=== PATIENT | male | born 1965 | race Caucasian/White ===

== ENCOUNTER 2021-12-17 11:24 | Emergency (ER) | payer MEDICAID ==
[~2021-12-17] VITALS: Ht 188 cm; Wt 84.1 kg
[2021-12-17] MEDS ORDERED: SODIUM CHLORIDE 0.9% 1,000 ML IV ONE ×2 (11:45→12:30)
[2021-12-17 11:52] LABS: BASOPHILS % (AUTO) 0.1 % (0.0-2.0); EOSINOPHILS % (AUTO) 0.8 % (1.0-6.0); HEMATOCRIT 38.2 % (41-53); LYMPHOCYTES % (AUTO) 17.4 % (22.0-44.0); MEAN CORPUSCULAR HEMOGLOBIN 30.1 pg (26.0-34.0); MEAN CORPUSCULAR VOLUME 89 fL (80-100); MONOCYTES # (AUTO) 0.5 K/uL (0.1-1.0); MONOCYTES % (AUTO) 8.6 % (2.0-9.0); NEUTROPHILS # (AUTO) 4.4 K/uL (1.8-7.7); NEUTROPHILS % (AUTO) 73.1 % (40.0-70.0); PLATELET COUNT (AUTO) 212 K/uL (150-450); RED BLOOD CELL COUNT(AUTO) 4.31 MIL/uL (4.50-5.90); RED CELL DISTRIBUTION WIDTH 16.5 % (11.5-14.5)
[2021-12-17 12:00] LABS: CALCIUM, TOTAL 9.1 mg/dL (8.8-10.5); CREATININE 1.39 mg/dL (0.60-1.30); POTASSIUM 3.8 mmol/L (3.5-5.1)
[2021-12-17 12:05] LABS: INR 1.1 (0.9-1.1); PROTHROMBIN TIME 11.2 SEC (9.4-11.6)
[2021-12-17 12:09] LABS: ALBUMIN 3.5 g/dL (3.4-5.0); BILIRUBIN,TOTAL 0.6 mg/dL (0.1-1.0); TOTAL PROTEIN, SERUM 7.9 g/dL (6.4-8.2)
[2021-12-17 12:14] LABS: APPEARANCE,URINE CLEAR (CLEAR); BILIRUBIN,URINE NEGATIVE (NEGATIVE); GLUCOSE, URINE (UA) NEGATIVE (NEGATIVE); KETONES,URINE NEGATIVE (NEGATIVE); LEUKOCYTE ESTERASE ,URINE NEGATIVE (NEGATIVE); NITRATE,URINE NEGATIVE (NEGATIVE); OCCULT BLOOD,URINE NEGATIVE (NEGATIVE); PH,URINE 6.5 (5.0-8.0); PROTEIN,URINE NEGATIVE (NEGATIVE); UROBILINOGEN,URINE <=1.0 mg/dL (<=1.0)
[2021-12-17] MEDS ORDERED: LORazepam 1 MG TABLET PO ONE (12:30)
[2021-12-17 12:50] VITALS: BP 136/82
== END 2021-12-17 13:42 | disposition left against medical advice (07) ==
LOC: EMS 11:24
DX: R07.9 Chest pain, unspecified (principal); F15.90 Other stimulant use, unspecified, uncomplicated; R00.0 Tachycardia, unspecified; I95.9 Hypotension, unspecified; J44.9 Chronic obstructive pulmonary disease, unspecified; I10 Essential (primary) hypertension; Z86.79 Personal history of other diseases of the circulatory system; Z96.89 Presence of other specified functional implants; Z98.890 Other specified postprocedural states; F17.210 Nicotine dependence, cigarettes, uncomplicated
CPT/HCPCS: 99285; 96360; 71045; 96361; 80053; 81003; 84484; 85025; 85610; 85730; 36415; 93005; J7030

== ENCOUNTER 2021-12-28 03:06 | Emergency (ER) | payer MEDICAID ==
[~2021-12-28] VITALS: Ht 185.4 cm; Wt 89.0 kg
[2021-12-28 04:31] LABS: COVID AG,FIA SOURCE NASAL SWAB
[2021-12-28 04:49] VITALS: BP 176/84
[2021-12-28 05:24] LABS: AMPHET/METH SCREEN,URINE POSITIVE (NEGATIVE); BARBITURATE SCREEN, URINE NEGATIVE (NEGATIVE); BENZODIAZEPINES SCREEN,URINE NEGATIVE (NEGATIVE); CANNABINOID SCREEN,URINE NEGATIVE (NEGATIVE); COCAINE SCREEN,URINE NEGATIVE (NEGATIVE); METHADONE SCREEN, URINE NEGATIVE (NEGATIVE); OPIATE SCREEN,URINE NEGATIVE (NEGATIVE); PHENCYCLIDINE SCREEN,URINE NEGATIVE (NEGATIVE)
== END 2021-12-28 06:49 | disposition home or self-care (01) ==
LOC: EMS 03:06
DX: F15.90 Other stimulant use, unspecified, uncomplicated (principal); J44.9 Chronic obstructive pulmonary disease, unspecified; I10 Essential (primary) hypertension; I48.91 Unspecified atrial fibrillation; F11.90 Opioid use, unspecified, uncomplicated; F17.210 Nicotine dependence, cigarettes, uncomplicated; Z86.79 Personal history of other diseases of the circulatory system; Z95.0 Presence of cardiac pacemaker; Z98.890 Other specified postprocedural states; Z20.822 Contact with and (suspected) exposure to COVID-19
CPT/HCPCS: 71045; 93005; 99285

== ENCOUNTER 2022-01-06 07:59 | Inpatient (IN) | payer MEDICAID ==
[~2022-01-06] VITALS: Ht 190.5 cm; Wt 84.2 kg
[2022-01-06 12:53] VITALS: BP 160/94
[2022-01-06] MEDS ORDERED: BENZOCAINE/MENTHOL LOZENGE PO PRN (14:15)
[2022-01-06] MEDS ORDERED: ACETAMINOPHEN 325 MG TABLET PO PRN (14:15)
[2022-01-06] MEDS ORDERED: OMEPRAZOLE 20 MG CAPSULE PO PRN (14:15)
[2022-01-06] MEDS ORDERED: MAG HYDROX/AL HYDROX/SIMETH ES 30 ML SUSPENSION UDCUP PO PRN (14:15)
[2022-01-06] MEDS ORDERED: CloNIDine HCL 0.1 MG TABLET PO PRN (14:15)
[2022-01-06] MEDS ORDERED: PETROLATUM,WHITE 28 GM JELLY TP PRN (14:15)
[2022-01-06] MEDS ORDERED: MAGNESIUM HYDROXIDE SUSPENSION 30 ML UDCUP PO PRN (14:15)
[2022-01-06] MEDS ORDERED: DOCUSATE SODIUM 100 MG CAPSULE PO PRN (14:15)
[2022-01-06] MEDS ORDERED: ONDANSETRON HCL 4 MG TABLET PO PRN (14:15)
[2022-01-06] MEDS ORDERED: LOPERAMIDE HCL 2 MG CAPSULE PO PRN (14:15)
[2022-01-06] MEDS ORDERED: IBUPROFEN 600 MG TABLET PO PRN (14:15)
[2022-01-06] MEDS ORDERED: BACITRACIN 28 GM OINTMENT TP PRN (14:15)
[2022-01-06] MEDS ORDERED: ALBUTEROL SULFATE HFA 90 MCG/PUFF 8 GM INHALER IH PRN (14:15)
[2022-01-07] MEDS: ZOLPIDEM TARTRATE 10 MG TABLET PO PRN (02:00)
[2022-01-07] MEDS: LORazepam 2 MG TABLET PO PRN ×3 (02:00→15:30)
[2022-01-07] MEDS: LevETIRAcetam 500 MG TABLET PO SCH ×2 (09:05→17:20)
[2022-01-07] MEDS: METOPROLOL TARTRATE 25 MG TABLET PO SCH ×2 (09:06→17:21)
[2022-01-07] MEDS: LISINOPRIL 20 MG TABLET PO SCH (09:06)
[2022-01-07] MEDS: FUROSEMIDE 40 MG TABLET PO SCH (09:06)
[2022-01-07] MEDS: APIXABAN 5 MG TABLET PO SCH ×2 (09:07→17:21)
[2022-01-07] MEDS: LOSARTAN POTASSIUM 50 MG TABLET PO SCH (09:07)
[2022-01-07] MEDS: EMTRICITABINE/TENOFOVIR 200-300 MG TABLET PO SCH (09:07)
[2022-01-07 10:22] VITALS: BP 169/112
[2022-01-07 16:18] VITALS: BP 119/69
[2022-01-07 17:14] VITALS: BP 143/80
[2022-01-07] MEDS ORDERED: DiphenhydrAMINE HCL 50 MG/ML VIAL IM ONE (20:45)
[2022-01-07] MEDS ORDERED: HALOPERIDOL LACTATE 5 MG/ML VIAL IM ONE (20:45)
[2022-01-07] MEDS ORDERED: LORazepam 2 MG/ML VIAL IM ONE (20:45)
[2022-01-07] MEDS ORDERED: HALOPERIDOL LACTATE 5 MG/ML VIAL ONE (20:46)
[2022-01-07] MEDS ORDERED: DiphenhydrAMINE HCL 50 MG/ML VIAL ONE (20:47)
[2022-01-08] MEDS: LOSARTAN POTASSIUM 50 MG TABLET PO SCH (09:05)
[2022-01-08] MEDS: DIVALPROEX SODIUM 500 MG DR TABLET PO SCH ×2 (09:05→20:30)
[2022-01-08] MEDS: EMTRICITABINE/TENOFOVIR 200-300 MG TABLET PO SCH (09:05)
[2022-01-08] MEDS: LORazepam 2 MG TABLET PO PRN ×2 (09:05→13:25)
[2022-01-08] MEDS: APIXABAN 5 MG TABLET PO SCH ×2 (09:06→17:00)
[2022-01-08] MEDS: LevETIRAcetam 500 MG TABLET PO SCH ×2 (09:06→17:00)
[2022-01-08] MEDS: QUEtiapine FUMARATE 100 MG TABLET PO SCH (09:06)
[2022-01-08] MEDS: LISINOPRIL 20 MG TABLET PO SCH (09:06)
[2022-01-08] MEDS: METOPROLOL TARTRATE 25 MG TABLET PO SCH ×2 (09:09→17:00)
[2022-01-08] MEDS: FUROSEMIDE 40 MG TABLET PO SCH (09:09)
[2022-01-08] MEDS: NICOTINE 21 MG/24 HOUR PATCH TD SCH (12:21)
[2022-01-08] MEDS: HALOPERIDOL 5 MG TABLET PO PRN (13:25)
[2022-01-08] MEDS ORDERED: DiphenhydrAMINE HCL 50 MG/ML VIAL ONE (15:20)
[2022-01-08] MEDS ORDERED: HALOPERIDOL LACTATE 5 MG/ML VIAL ONE (15:21)
[2022-01-08] MEDS ORDERED: DiphenhydrAMINE HCL 50 MG/ML VIAL IM ONE (15:30)
[2022-01-08] MEDS ORDERED: LORazepam 2 MG/ML VIAL IM ONE (15:30)
[2022-01-08] MEDS ORDERED: HALOPERIDOL LACTATE 5 MG/ML VIAL IM ONE (15:30)
[2022-01-08] MEDS: QUEtiapine FUMARATE 200 MG TABLET PO SCH (20:30)
[2022-01-09] MEDS: DIVALPROEX SODIUM 500 MG DR TABLET PO SCH ×2 (09:27→21:00)
[2022-01-09] MEDS: QUEtiapine FUMARATE 100 MG TABLET PO SCH (09:27)
[2022-01-09] MEDS: LORazepam 2 MG TABLET PO PRN ×2 (09:27→13:29)
[2022-01-09] MEDS: LevETIRAcetam 500 MG TABLET PO SCH ×2 (09:27→17:27)
[2022-01-09] MEDS: HALOPERIDOL 5 MG TABLET PO PRN (09:27)
[2022-01-09] MEDS: APIXABAN 5 MG TABLET PO SCH ×2 (09:27→17:28)
[2022-01-09] MEDS: LISINOPRIL 20 MG TABLET PO SCH (09:27)
[2022-01-09] MEDS: METOPROLOL TARTRATE 25 MG TABLET PO SCH ×2 (09:27→17:28)
[2022-01-09] MEDS: LOSARTAN POTASSIUM 50 MG TABLET PO SCH (09:27)
[2022-01-09] MEDS: FUROSEMIDE 40 MG TABLET PO SCH (09:28)
[2022-01-09] MEDS: EMTRICITABINE/TENOFOVIR 200-300 MG TABLET PO SCH (09:33)
[2022-01-09] MEDS: NICOTINE 21 MG/24 HOUR PATCH TD SCH (09:35)
[2022-01-09] MEDS: QUEtiapine FUMARATE 200 MG TABLET PO SCH (21:00)
[2022-01-10] MEDS: DIVALPROEX SODIUM 500 MG DR TABLET PO SCH ×2 (09:37→20:01)
[2022-01-10] MEDS: LORazepam 2 MG TABLET PO PRN ×3 (09:37→20:02)
[2022-01-10] MEDS: NICOTINE 21 MG/24 HOUR PATCH TD SCH (09:37)
[2022-01-10] MEDS: LevETIRAcetam 500 MG TABLET PO SCH ×2 (09:37→16:08)
[2022-01-10] MEDS: LISINOPRIL 20 MG TABLET PO SCH (09:37)
[2022-01-10] MEDS: EMTRICITABINE/TENOFOVIR 200-300 MG TABLET PO SCH (09:38)
[2022-01-10] MEDS: METOPROLOL TARTRATE 25 MG TABLET PO SCH ×2 (09:38→16:24)
[2022-01-10] MEDS: FUROSEMIDE 40 MG TABLET PO SCH (09:38)
[2022-01-10] MEDS: LOSARTAN POTASSIUM 50 MG TABLET PO SCH (09:39)
[2022-01-10] MEDS: APIXABAN 5 MG TABLET PO SCH ×2 (09:39→16:21)
[2022-01-10] MEDS: QUEtiapine FUMARATE 100 MG TABLET PO SCH (09:39)
[2022-01-10] MEDS: HALOPERIDOL 5 MG TABLET PO PRN (16:08)
[2022-01-10] MEDS: QUEtiapine FUMARATE 200 MG TABLET PO SCH (20:02)
[2022-01-11] MEDS: LORazepam 2 MG TABLET PO PRN ×2 (00:32→08:26)
[2022-01-11] MEDS: ZOLPIDEM TARTRATE 10 MG TABLET PO PRN (00:32)
[2022-01-11 08:01] VITALS: BP 168/98
[2022-01-11] MEDS: EMTRICITABINE/TENOFOVIR 200-300 MG TABLET PO SCH (08:07)
[2022-01-11] MEDS: METOPROLOL TARTRATE 25 MG TABLET PO SCH (08:07)
[2022-01-11] MEDS: LOSARTAN POTASSIUM 50 MG TABLET PO SCH (08:07)
[2022-01-11] MEDS: FUROSEMIDE 40 MG TABLET PO SCH (08:10)
[2022-01-11] MEDS: APIXABAN 5 MG TABLET PO SCH (08:10)
[2022-01-11] MEDS: LevETIRAcetam 500 MG TABLET PO SCH (08:10)
[2022-01-11] MEDS: DIVALPROEX SODIUM 500 MG DR TABLET PO SCH (08:10)
[2022-01-11] MEDS: LISINOPRIL 20 MG TABLET PO SCH (08:10)
[2022-01-11] MEDS: QUEtiapine FUMARATE 100 MG TABLET PO SCH (08:10)
[2022-01-11] MEDS: NICOTINE 21 MG/24 HOUR PATCH TD SCH (08:11)
[2022-01-11] MEDS ORDERED: QUET200T30 PO (10:47)
[2022-01-11] MEDS ORDERED: QUET100T34 PO (10:47)
[2022-01-11] MEDS ORDERED: DIVA-112 PO (10:47)
[2022-01-11] MEDS ORDERED: FURO-152 PO ×2 (11:24→20:29)
[2022-01-11] MEDS ORDERED: APIX5TAB PO ×2 (11:25→20:29)
[2022-01-11] MEDS ORDERED: LEVE500T8 PO ×2 (11:26→20:29)
[2022-01-11] MEDS ORDERED: LOSA-382 PO ×2 (11:27→20:29)
[2022-01-11] MEDS ORDERED: LISI-662 PO ×2 (11:27→20:29)
[2022-01-11] MEDS ORDERED: METO25 PO ×2 (11:27→20:29)
== END 2022-01-11 13:30 | disposition home or self-care (01) | DRG 750 ==
LOC: 3EI 11:45 → 3EC 01-08 02:14
PROVIDERS: ADMIT Psychiatry & Neurology Psychiatry; ATTEND Psychiatry & Neurology Psychiatry
DX: F25.9 Schizoaffective disorder, unspecified (principal); F10.10 Alcohol abuse, uncomplicated; F12.10 Cannabis abuse, uncomplicated; F15.10 Other stimulant abuse, uncomplicated; F17.200 Nicotine dependence, unspecified, uncomplicated; F32.A Depression, unspecified; F41.9 Anxiety disorder, unspecified; I10 Essential (primary) hypertension; I48.91 Unspecified atrial fibrillation; J44.9 Chronic obstructive pulmonary disease, unspecified; K21.9 Gastro-esophageal reflux disease without esophagitis; Z59.00 Homelessness unspecified; Z95.0 Presence of cardiac pacemaker; Z56.0 Unemployment, unspecified
CPT/HCPCS: J1200; J1630; J2060; J3535

== ENCOUNTER 2022-01-13 23:14 | Emergency (ER) | payer MEDICAID ==
[~2022-01-13] VITALS: Ht 188 cm; Wt 81.8 kg
[~2022-01-13 23:14] MED LIST: APIX5TAB PO; DIVA-112 PO; FURO-152 PO; LEVE500T8 PO; LISI-662 PO; LOSA-382 PO; METO25 PO; QUET100T34 PO; QUET200T30 PO
[2022-01-13 23:30] VITALS: BP 106/73
[2022-01-14] MEDS ORDERED: LORazepam 2 MG TABLET PO ONE (02:00)
[2022-01-14] MEDS ORDERED: QUEtiapine FUMARATE 100 MG TABLET PO ONE (02:15)
== END 2022-01-14 02:43 | disposition left against medical advice (07) ==
LOC: EMS 23:15
DX: F25.9 Schizoaffective disorder, unspecified (principal); J44.9 Chronic obstructive pulmonary disease, unspecified; I10 Essential (primary) hypertension; I51.9 Heart disease, unspecified; F17.210 Nicotine dependence, cigarettes, uncomplicated; F15.90 Other stimulant use, unspecified, uncomplicated; F11.90 Opioid use, unspecified, uncomplicated; Z98.890 Other specified postprocedural states
CPT/HCPCS: 93005; 99283

== ENCOUNTER 2023-02-21 01:16 | Emergency (ER) | payer MEDICAID | END 2023-02-21 01:40 | disposition left against medical advice (07) | LOC: EMS 01:17 | DX: Z53.21 Procedure and treatment not carried out due to patient leaving prior to being seen by health care provider (principal) ==

== ENCOUNTER 2023-02-21 08:04 | Emergency (ER) | payer MEDICAID ==
[~2023-02-21] VITALS: Ht 188 cm; Wt 8.4 kg
[2023-02-21 08:14] VITALS: TEMP 97.7
[2023-02-21] MEDS ORDERED: LORazepam 2 MG TABLET PO ONE (09:15)
[2023-02-21] MEDS ORDERED: SODIUM CHLORIDE 0.9% 1,000 ML IV ONE (09:15)
[2023-02-21] MEDS ORDERED: ONDANSETRON HCL 4 MG/2 ML VIAL IVP ONE (09:15)
[2023-02-21 09:36] LABS: APPEARANCE,URINE CLEAR (CLEAR); BILIRUBIN,URINE NEGATIVE (NEGATIVE); COLOR,URINE YELLOW (YELLOW); GLUCOSE, URINE (UA) NEGATIVE (NEGATIVE); LEUKOCYTE ESTERASE ,URINE NEGATIVE (NEGATIVE); NITRATE,URINE NEGATIVE (NEGATIVE); OCCULT BLOOD,URINE NEGATIVE (NEGATIVE); PROTEIN,URINE TRACE mg/dL (NEGATIVE); SPECIFIC GRAVITIY, URINE 1.021 (1.003-1.030); UROBILINOGEN,URINE <=1.0 mg/dL (<=1.0)
[2023-02-21 09:43] LABS: AMPHET/METH SCREEN,URINE POSITIVE (NEGATIVE); BARBITURATE SCREEN, URINE NEGATIVE (NEGATIVE); BENZODIAZEPINES SCREEN,URINE NEGATIVE (NEGATIVE); CANNABINOID SCREEN,URINE NEGATIVE (NEGATIVE); COCAINE SCREEN,URINE NEGATIVE (NEGATIVE); METHADONE SCREEN, URINE NEGATIVE (NEGATIVE); OPIATE SCREEN,URINE NEGATIVE (NEGATIVE); PHENCYCLIDINE SCREEN,URINE NEGATIVE (NEGATIVE)
[2023-02-21 09:53] LABS: ALCOHOL, URINE DRUG SCREEN NEGATIVE (NEGATIVE)
[2023-02-21 09:57] LABS: ANION GAP 7 mmol/L (8-16); CALCIUM, TOTAL 8.8 mg/dL (8.8-10.5); CARBON DIOXIDE 30 mmol/L (22-29); CHLORIDE 99 mmol/L (98-107); CREATININE 1.02 mg/dL (0.60-1.30); GLOMERULAR FILTR. RATE CALC > 60 mL/min (>60); GLUCOSE,RANDOM 161 mg/dL (70-110); POTASSIUM 3.6 mmol/L (3.5-5.1); SODIUM SERUM 136 mmol/L (136-145); UREA NITROGEN, BLOOD 20 mg/dL (7-18)
[2023-02-21 10:04] LABS: TROPONIN I-HIGH SENSITIVITY 21 ng/L (<76)
[2023-02-21 10:05] LABS: BACTERIA,URINE None Seen /HPF (None Seen); CALCIUM OXALATE CRYSTALS,UR Moderate /LPF (None Seen); RBC,URINE None Seen /HPF (0-2); SQUAMOUS EPITHELIAL CELL,UR Few /LPF (None Seen); WBC,URINE None Seen /HPF (0-5)
[2023-02-21 10:21] LABS: ALANINE AMINOTRANSFERASE 25 U/L (12-78); ALBUMIN 3.3 g/dL (3.4-5.0); ALKALINE PHOSPHATASE 68 U/L (46-116); ASPARTATE AMINOTRANSFERASE 24 U/L (15-37); BILIRUBIN,TOTAL 0.8 mg/dL (0.1-1.0); CREATINE KINASE, TOTAL ONLY 171 U/L (39-308); LIPASE 60 U/L (16-77)
[2023-02-21 10:59] VITALS: BP 158/94; PULSE 98; RESP 16
== END 2023-02-21 11:00 | disposition home or self-care (01) ==
LOC: EMS 08:30
DX: F11.10 Opioid abuse, uncomplicated (principal); F15.10 Other stimulant abuse, uncomplicated; F25.9 Schizoaffective disorder, unspecified; I48.91 Unspecified atrial fibrillation; J44.9 Chronic obstructive pulmonary disease, unspecified; I11.9 Hypertensive heart disease without heart failure; F17.210 Nicotine dependence, cigarettes, uncomplicated; Z98.890 Other specified postprocedural states; Z95.0 Presence of cardiac pacemaker
CPT/HCPCS: 71045; 80053; 80307; 81001; 82550; 83690; 84484; 93005; 99285; 36415-L1; 36415-TC

== ENCOUNTER 2023-02-21 18:06 | Emergency (ER) | payer MEDICAID ==
[~2023-02-21] VITALS: Ht 190.5 cm; Wt 68.2 kg
[2023-02-21 20:38] VITALS: BP 146/68; PULSE 80; RESP 17; TEMP 98.5
[2023-02-21] MEDS ORDERED: DIPHENOXYLATE/ATROP 2.5-0.025 MG TABLET PO ONE (23:30)
== END 2023-02-22 01:42 | disposition home or self-care (01) ==
LOC: EMS 18:06
DX: F11.20 Opioid dependence, uncomplicated (principal); F15.10 Other stimulant abuse, uncomplicated; R19.7 Diarrhea, unspecified; J44.9 Chronic obstructive pulmonary disease, unspecified; F17.210 Nicotine dependence, cigarettes, uncomplicated; I11.9 Hypertensive heart disease without heart failure; Z98.890 Other specified postprocedural states
CPT/HCPCS: 93005; 99283

== ENCOUNTER 2023-12-23 17:13 | Inpatient (IN) | payer MEDICAID ==
[~2023-12-23] VITALS: Ht 190.5 cm; Wt 79.7 kg
[2023-12-23 18:30] LABS: BASOPHILS % (AUTO) 0.5 % (0.0-2.0); EOSINOPHILS % (AUTO) 2.2 % (1.0-6.0); HEMATOCRIT 44.5 % (41-53); HEMOGLOBIN 14.6 g/dL (13.5-17.5); LYMPHOCYTES # (AUTO) 1.2 K/uL (1.0-4.8); LYMPHOCYTES % (AUTO) 19.3 % (22.0-44.0); MEAN CORPUSCULAR HEMOGLOBIN 30.2 pg (26.0-34.0); MEAN CORPUSCULAR HGB CONC 32.9 G/dL (31.0-37.0); MEAN CORPUSCULAR VOLUME 92 fL (80-100); MONOCYTES # (AUTO) 0.5 K/uL (0.1-1.0); MONOCYTES % (AUTO) 7.6 % (2.0-9.0); NEUTROPHILS # (AUTO) 4.2 K/uL (1.8-7.7); NEUTROPHILS % (AUTO) 70.4 % (40.0-70.0); PLATELET COUNT (AUTO) 204 K/uL (150-450); RED BLOOD CELL COUNT(AUTO) 4.85 MIL/uL (4.50-5.90); RED CELL DISTRIBUTION WIDTH 14.7 % (11.5-14.5)
[2023-12-23 18:32] LABS: ANION GAP 5 mmol/L (8-16); CALCIUM, TOTAL 8.6 mg/dL (8.8-10.5); CARBON DIOXIDE 31 mmol/L (22-29); CHLORIDE 103 mmol/L (98-107); CREATININE 0.93 mg/dL (0.60-1.30); GLOMERULAR FILTR. RATE CALC > 60 mL/min (>60); GLUCOSE,RANDOM 85 mg/dL (70-110); POTASSIUM 4.2 mmol/L (3.5-5.1); SODIUM SERUM 139 mmol/L (136-145); UREA NITROGEN, BLOOD 15 mg/dL (7-18)
[2023-12-23 18:36] LABS: ALCOHOL, BLOOD (SERUM) < 3 mg/dL (0-10)
[2023-12-23 18:54] LABS: COVID AG,FIA SOURCE NPH
[2023-12-23 19:03] LABS: APPEARANCE,URINE CLEAR (CLEAR); BILIRUBIN,URINE NEGATIVE (NEGATIVE); COLOR,URINE YELLOW (YELLOW); GLUCOSE, URINE (UA) 70-100 mg/dL (NEGATIVE); KETONES,URINE NEGATIVE (NEGATIVE); LEUKOCYTE ESTERASE ,URINE NEGATIVE (NEGATIVE); NITRATE,URINE NEGATIVE (NEGATIVE); OCCULT BLOOD,URINE NEGATIVE (NEGATIVE); PROTEIN,URINE TRACE mg/dL (NEGATIVE); SPECIFIC GRAVITIY, URINE 1.025 (1.003-1.030)
[2023-12-23 19:10] LABS: ALCOHOL, URINE DRUG SCREEN NEGATIVE (NEGATIVE); AMPHET/METH SCREEN,URINE POSITIVE (NEGATIVE); BARBITURATE SCREEN, URINE POSITIVE (NEGATIVE); BENZODIAZEPINES SCREEN,URINE NEGATIVE (NEGATIVE); CANNABINOID SCREEN,URINE POSITIVE (NEGATIVE); COCAINE SCREEN,URINE NEGATIVE (NEGATIVE); METHADONE SCREEN, URINE NEGATIVE (NEGATIVE); OPIATE SCREEN,URINE NEGATIVE (NEGATIVE); PHENCYCLIDINE SCREEN,URINE NEGATIVE (NEGATIVE)
[2023-12-23 19:14] LABS: BACTERIA,URINE None Seen /HPF (None Seen); RBC,URINE None Seen /HPF (0-2); WBC,URINE 0-2 /HPF (0-5)
[2023-12-23 19:20] LABS: SARS-COV2 (COVID) ANTIGEN,FIA Negative (Negative)
[2023-12-24] MEDS: LORazepam 2 MG TABLET PO PRN (11:37)
[2023-12-24] MEDS: QUEtiapine FUMARATE 100 MG TABLET PO PRN (11:37)
[2023-12-25] MEDS: ZOLPIDEM TARTRATE 10 MG TABLET PO PRN (01:13)
[2023-12-25] MEDS: DiphenhydrAMINE HCL 25 MG CAPSULE PO ONE (03:02)
[2023-12-25] MEDS ORDERED: OLANZapine 10 MG TABLET ONE (05:04)
[2023-12-25] MEDS: OLANZapine 10 MG TABLET PO ONE (05:24)
[2023-12-25] MEDS ORDERED: LORazepam 2 MG/ML VIAL ONE (10:44)
[2023-12-25] MEDS ORDERED: HALOPERIDOL LACTATE 5 MG/ML VIAL ONE (10:44)
[2023-12-25] MEDS ORDERED: DiphenhydrAMINE HCL 50 MG/ML VIAL ONE (10:44)
[2023-12-25] MEDS: DiphenhydrAMINE HCL 50 MG/ML VIAL IM ONE (10:47)
[2023-12-25] MEDS: LORazepam 2 MG/ML VIAL IM ONE (10:47)
[2023-12-25] MEDS: HALOPERIDOL LACTATE 5 MG/ML VIAL IM ONE (10:47)
[2023-12-25 23:07] VITALS: RESP 18
[2023-12-26] MEDS ORDERED: PNEUMOCOCCAL VACCINE POLYVALENT 0.5 ML SYRINGE [PPSV23] IM. ONE (01:15)
[2023-12-26] MEDS ORDERED: MAGNESIUM HYDROXIDE SUSPENSION 30 ML UDCUP PO PRN (07:00)
[2023-12-26] MEDS ORDERED: ONDANSETRON HCL 4 MG TABLET PO PRN (07:00)
[2023-12-26] MEDS ORDERED: MAG HYDROX/ALUMINUM HYD/SIMETH ES 30 ML SUSPENSION UDCUP PO PRN (07:00)
[2023-12-26] MEDS ORDERED: DOCUSATE SODIUM 100 MG CAPSULE PO PRN (07:00)
[2023-12-26] MEDS ORDERED: LOPERAMIDE HCL 2 MG CAPSULE PO PRN (07:00)
[2023-12-26] MEDS ORDERED: GuaiFENesin/D-METHORPHAN [SUGAR-FREE] 200-20MG/10 ML SYRUP UDCUP PO PRN (07:00)
[2023-12-26] MEDS ORDERED: PETROLATUM,WHITE 28 GM JELLY TP PRN (07:00)
[2023-12-26] MEDS ORDERED: ALBUTEROL SULFATE HFA 90 MCG/PUFF 8 GM INHALER IH PRN (07:00)
[2023-12-26] MEDS: LevETIRAcetam 500 MG TABLET PO SCH (07:48)
[2023-12-26] MEDS: METOPROLOL TARTRATE 25 MG TABLET PO SCH ×2 (07:48→18:15)
[2023-12-26 08:00] VITALS: BP 186/114; PULSE 82; RESP 20; TEMP 98.2; O2SAT 99
[2023-12-26] MEDS: CloNIDine HCL 0.1 MG TABLET PO PRN (08:19)
[2023-12-26 17:32] VITALS: BP 141/98; PULSE 80; RESP 17; TEMP 98.6; O2SAT 99
[2023-12-26] MEDS: LOSARTAN POTASSIUM 50 MG TABLET PO SCH (18:15)
[2023-12-26 20:14] VITALS: BP 158/98; PULSE 86; RESP 18; TEMP 98.4; O2SAT 99
[2023-12-27] MEDS: DIVALPROEX SODIUM 500 MG DR TABLET PO SCH (09:00)
[2023-12-27] MEDS: RisperiDONE 2 MG TABLET PO SCH (09:00)
[2023-12-27] MEDS ORDERED: METOPROLOL TARTRATE 25 MG TABLET PO SCH (09:00)
[2023-12-27 21:19] VITALS: BP 138/80; PULSE 87; RESP 18; TEMP 98.8; O2SAT 96
[2023-12-27 21:20] VITALS: BP 143/89; PULSE 85; RESP 20; TEMP 97.8; O2SAT 98
[2023-12-27] MEDS: IBUPROFEN 400 MG TABLET PO PRN (21:27)
[2023-12-27 22:27] VITALS: RESP 18
[2023-12-28] MEDS: ASPIRIN 81 MG CHEWABLE TABLET PO SCH (07:03)
[2023-12-28 08:59] VITALS: BP 150/80; PULSE 96; RESP 17; TEMP 98; O2SAT 97
[2023-12-28] MEDS: AmLODIPine BESYLATE 5 MG TABLET PO SCH (09:14)
[2023-12-28] MEDS: BUPRENORPHINE HCL/NALOXONE HCL 8-2 MG SUBLINGUAL TABLET SL SCH (13:45)
[2023-12-28 14:04] LABS: CHOL/HDL RATIO 2.8 (4.2-7.3); THYROID STIMULATING HORMONE 1.74 uIU/mL (0.36-3.74)
[2023-12-28 14:07] LABS: HEMOGLOBIN A1C 5.2 % (3.8-5.6)
[2023-12-28] MEDS: NICOTINE 14 MG/24 HOUR PATCH TD PRN (18:33)
[2023-12-28 20:58] VITALS: BP 128/79; PULSE 74; RESP 20; TEMP 98.5; O2SAT 99
[2023-12-29] MEDS ORDERED: LORazepam 2 MG/ML VIAL ONE (08:04)
[2023-12-29] MEDS ORDERED: ChlorproMAZINE HCL 50 MG/2 ML AMP ONE (08:05)
[2023-12-29] MEDS ORDERED: DiphenhydrAMINE HCL 50 MG/ML VIAL ONE (08:05)
[2023-12-29] MEDS: DiphenhydrAMINE HCL 50 MG/ML VIAL IM ONE (08:26)
[2023-12-29] MEDS: LORazepam 2 MG/ML VIAL IM ONE (08:26)
[2023-12-29] MEDS: ChlorproMAZINE HCL 50 MG/2 ML AMP IM ONE (08:26)
[2023-12-29 08:42] LABS: CHOL/HDL RATIO 2.7 (4.2-7.3)
[2023-12-29 09:00] VITALS: RESP 18
[2023-12-29 20:06] VITALS: RESP 18
[2023-12-30 09:06] VITALS: PULSE 76; RESP 19; TEMP 97.6
[2023-12-30 15:14] VITALS: BP 135/79; PULSE 89; RESP 18
[2023-12-30 16:59] VITALS: BP 132/82; PULSE 95; RESP 18
[2023-12-30 21:31] VITALS: RESP 18
[2023-12-31 08:41] VITALS: BP 155/87; PULSE 80; RESP 17; TEMP 97.8; O2SAT 99
[2023-12-31 17:41] VITALS: BP 145/85; PULSE 89; RESP 18
[2023-12-31 21:33] VITALS: BP 130/87; PULSE 86; RESP 19; TEMP 98.1; O2SAT 98
[2024-01-01 08:08] VITALS: BP 153/91; PULSE 81; RESP 17; TEMP 97.6; O2SAT 98
[2024-01-02 09:05] VITALS: BP 168/100; PULSE 78; RESP 16; TEMP 97.2; O2SAT 95
[2024-01-02] MEDS: RisperiDONE ER SUSPENSION 125 MG/0.35 ML PRE-FILLED SYRINGE SQ SCH (15:37)
[2024-01-03 08:10] VITALS: BP 168/91; PULSE 70; RESP 18; TEMP 97.1; O2SAT 98
[2024-01-03] MEDS: AmLODIPine BESYLATE 5 MG TABLET PO SCH (09:46)
[2024-01-03 20:04] VITALS: RESP 18
[2024-01-04 08:41] VITALS: BP 127/80; PULSE 92; RESP 18; TEMP 97.9; O2SAT 98
[2024-01-04 13:02] VITALS: RESP 18
[2024-01-04] MEDS: ACETAMINOPHEN 325 MG TABLET PO PRN (13:02)
[2024-01-04 20:38] VITALS: BP 99/60; PULSE 78; RESP 18; TEMP 98.4; O2SAT 95
[2024-01-05 08:13] VITALS: BP 118/71; PULSE 99; RESP 17; TEMP 97.9; O2SAT 95
[2024-01-05 12:50] VITALS: BP 115/65; PULSE 64; RESP 18; O2SAT 96
[2024-01-05 23:54] VITALS: BP 87/52; PULSE 71; RESP 18; TEMP 98.4; O2SAT 97
[2024-01-06 08:35] VITALS: BP 147/73; PULSE 78; RESP 18; TEMP 97.8; O2SAT 98
[2024-01-06 20:08] VITALS: RESP 18
[2024-01-07 08:00] VITALS: BP 129/70; PULSE 70; RESP 18; TEMP 97.7; O2SAT 95
[2024-01-08 08:37] VITALS: BP 152/76; PULSE 68; RESP 18; TEMP 97.3; O2SAT 95
[2024-01-08] MEDS: ESCITALOPRAM OXALATE 10 MG TABLET PO SCH (12:47)
[2024-01-09 08:11] VITALS: BP 186/88; PULSE 73; RESP 18; TEMP 97.8; O2SAT 99
[2024-01-09 15:05] VITALS: BP 129/94; PULSE 70; RESP 17; TEMP 97.8; O2SAT 98
[2024-01-09 16:09] VITALS: RESP 18
[2024-01-10 08:08] VITALS: RESP 18; TEMP 98
[2024-01-10 08:50] VITALS: BP 123/75; PULSE 78; RESP 18; O2SAT 97
[2024-01-10] MEDS: OLANZapine 5 MG TABLET PO SCH (11:24)
[2024-01-10 20:08] VITALS: RESP 18
[2024-01-11 08:15] VITALS: BP 122/71; PULSE 76; RESP 17; TEMP 97.7; O2SAT 95
[2024-01-11 15:37] VITALS: BP 118/96; PULSE 54; RESP 18; TEMP 98; O2SAT 98
[2024-01-11] MEDS: LIDOCAINE 1% 10 ML VIAL ID ONE (15:48)
[2024-01-11] MEDS: LIDOCAINE 4% 50 ML SOLUTION TP ONE (15:50)
[2024-01-11 21:43] VITALS: BP 130/72; PULSE 62; RESP 18; TEMP 98.6; O2SAT 98
[2024-01-11 21:46] VITALS: BP 130/72; PULSE 62; RESP 18; TEMP 98.6; O2SAT 98
[2024-01-11 22:00] VITALS: BP 127/79; PULSE 66; RESP 18; TEMP 98.4; O2SAT 97
[2024-01-12 08:15] VITALS: BP 149/85; PULSE 73; RESP 17; TEMP 98.2; O2SAT 96
[2024-01-12 20:40] VITALS: BP 110/68; PULSE 65; RESP 19; TEMP 97.5; O2SAT 96
[2024-01-12 21:43] VITALS: BP 140/88; PULSE 100; RESP 18; TEMP 97.8; O2SAT 96
[2024-01-13 09:30] VITALS: BP 166/98; PULSE 70; RESP 18; TEMP 98.2; O2SAT 97
[2024-01-13 11:00] VITALS: BP 99/56; PULSE 56
[2024-01-13 11:36] LABS: BASOPHILS % (AUTO) 0.2 % (0.0-2.0); EOSINOPHILS % (AUTO) 5.3 % (1.0-6.0); HEMATOCRIT 38.7 % (41-53); LYMPHOCYTES % (AUTO) 23.8 % (22.0-44.0); MEAN CORPUSCULAR HEMOGLOBIN 30.9 pg (26.0-34.0); MEAN CORPUSCULAR HGB CONC 33.6 G/dL (31.0-37.0); MEAN CORPUSCULAR VOLUME 92 fL (80-100); MONOCYTES # (AUTO) 0.5 K/uL (0.1-1.0); MONOCYTES % (AUTO) 11.3 % (2.0-9.0); NEUTROPHILS # (AUTO) 2.6 K/uL (1.8-7.7); NEUTROPHILS % (AUTO) 59.4 % (40.0-70.0); PLATELET COUNT (AUTO) 149 K/uL (150-450); RED BLOOD CELL COUNT(AUTO) 4.21 MIL/uL (4.50-5.90); RED CELL DISTRIBUTION WIDTH 13.8 % (11.5-14.5); WHITE BLOOD COUNT (AUTO) 4.4 K/uL (4.5-11.0)
[2024-01-13 12:03] LABS: CALCIUM, TOTAL 8.7 mg/dL (8.8-10.5); CREATININE 1.41 mg/dL (0.60-1.30); POTASSIUM 3.8 mmol/L (3.5-5.1)
[2024-01-13 12:41] VITALS: BP 100/60; PULSE 60; RESP 18; TEMP 98; O2SAT 96
[2024-01-13 17:38] VITALS: BP 107/59; PULSE 61
[2024-01-13 21:25] VITALS: BP 117/59; PULSE 66; RESP 18; TEMP 97; O2SAT 98
[2024-01-14] MEDS: LOSARTAN POTASSIUM 25 MG TABLET PO SCH (08:24)
[2024-01-14] MEDS: BUPRENORPHINE HCL/NALOXONE HCL 8-2 MG SUBLINGUAL TABLET SL SCH (08:26)
[2024-01-14 09:02] VITALS: BP 156/82; PULSE 63; RESP 18; TEMP 98.6; O2SAT 97
[2024-01-14 09:56] LABS: APPEARANCE,URINE CLEAR (CLEAR); BILIRUBIN,URINE NEGATIVE (NEGATIVE); COLOR,URINE LIGHT YELLOW (YELLOW); GLUCOSE, URINE (UA) NEGATIVE (NEGATIVE); KETONES,URINE NEGATIVE (NEGATIVE); LEUKOCYTE ESTERASE ,URINE NEGATIVE (NEGATIVE); NITRATE,URINE NEGATIVE (NEGATIVE); OCCULT BLOOD,URINE NEGATIVE (NEGATIVE); PH,URINE 5.5 (5.0-8.0); PROTEIN,URINE NEGATIVE (NEGATIVE); SPECIFIC GRAVITIY, URINE 1.019 (1.003-1.030); UROBILINOGEN,URINE <=1.0 mg/dL (<=1.0)
[2024-01-15 08:30] VITALS: BP 101/51; PULSE 62; RESP 18; TEMP 98.6; O2SAT 96
[2024-01-15 09:50] VITALS: BP 122/48; PULSE 59; RESP 18
[2024-01-15 20:37] VITALS: BP 102/50; PULSE 51; RESP 18; TEMP 97.6; O2SAT 95
[2024-01-16 08:11] VITALS: BP 147/92; PULSE 52; RESP 17; TEMP 97.7; O2SAT 96
[2024-01-16] MEDS ORDERED: ASPI-1450 PO (10:17)
[2024-01-16] MEDS ORDERED: BUPR1TAB46 SL (10:17)
[2024-01-16] MEDS ORDERED: METO25 PO (10:17)
[2024-01-16] MEDS ORDERED: ESCI-8 PO (10:17)
[2024-01-16] MEDS ORDERED: LEVE-71 PO (10:17)
[2024-01-16] MEDS ORDERED: LOSA-417 PO (10:17)
[2024-01-16] MEDS ORDERED: AMLO-257 PO (10:17)
[2024-01-16] MEDS ORDERED: RISP125S SQ (10:17)
[2024-01-16] MEDS ORDERED: DIVA-112 PO (10:17)
== END 2024-01-16 16:42 | disposition home or self-care (01) | DRG 750 ==
LOC: EMS 17:13 → UNDOADMIN 12-25 20:00 → 3EI 12-25 20:00 → 3EC 12-29 11:24
PROVIDERS: ADMIT Psychiatry & Neurology Psychiatry; ATTEND Psychiatry & Neurology Psychiatry
PROC: GZHZZZZ Group Psychotherapy (ICD-10-PCS; principal; 2023-12-26)
PROC: GZ52ZZZ Individual Psychotherapy, Cognitive (ICD-10-PCS; 2023-12-26)
PROC: 0HQ1XZZ Repair Face Skin, External Approach (ICD-10-PCS; 2024-01-11)
PROC: 0HQ0XZZ Repair Scalp Skin, External Approach (ICD-10-PCS; 2024-01-11)
DX: F25.1 Schizoaffective disorder, depressive type (principal); N17.9 Acute kidney failure, unspecified; I48.20 Chronic atrial fibrillation, unspecified; S01.111A Laceration without foreign body of right eyelid and periocular area, initial encounter; S01.81XA Laceration without foreign body of other part of head, initial encounter; R45.851 Suicidal ideations; F41.9 Anxiety disorder, unspecified; I10 Essential (primary) hypertension; J44.9 Chronic obstructive pulmonary disease, unspecified; F11.20 Opioid dependence, uncomplicated; F12.10 Cannabis abuse, uncomplicated; F15.20 Other stimulant dependence, uncomplicated; Z20.822 Contact with and (suspected) exposure to COVID-19; R45.850 Homicidal ideations; W18.39XA Other fall on same level, initial encounter; Y93.89 Activity, other specified; Y92.89 Other specified places as the place of occurrence of the external cause; Y99.8 Other external cause status; Z79.899 Other long term (current) drug therapy; Z87.891 Personal history of nicotine dependence; Z95.0 Presence of cardiac pacemaker
CPT/HCPCS: 70450; 80048; 80061; 80164; 80307; 81001; 81003; 82140; 83036; 84443; 85025; 99285; G0480; J1200; J1630; J2060; J3230; J3490; J3535

== ENCOUNTER 2024-05-16 13:15 | Inpatient (IN) | payer MEDICAID ==
[~2024-05-16] VITALS: Ht 182.9 cm; Wt 85.5 kg
[~2024-05-16 13:15] MED LIST changes: +AMLO-257 PO; -APIX5TAB PO; +ASPI-1450 PO; +ESCI-8 PO; -FURO-152 PO; +LEVE-71 PO; -LEVE500T8 PO; -LISI-662 PO; -LOSA-382 PO; +LOSA-417 PO; -QUET100T34 PO; -QUET200T30 PO; +RISP125S SQ
[2024-05-16 15:11] LABS: APPEARANCE,URINE CLEAR (CLEAR); BILIRUBIN,URINE NEGATIVE (NEGATIVE); COLOR,URINE LIGHT YELLOW (YELLOW); GLUCOSE, URINE (UA) NEGATIVE (NEGATIVE); KETONES,URINE TRACE mg/dL (NEGATIVE); LEUKOCYTE ESTERASE ,URINE NEGATIVE (NEGATIVE); NITRATE,URINE NEGATIVE (NEGATIVE); OCCULT BLOOD,URINE NEGATIVE (NEGATIVE); PROTEIN,URINE NEGATIVE (NEGATIVE); SPECIFIC GRAVITIY, URINE 1.022 (1.003-1.030); UROBILINOGEN,URINE <=1.0 mg/dL (<=1.0)
[2024-05-16] MEDS: ONDANSETRON HCL 4 MG/2 ML VIAL IVP ONE (15:11)
[2024-05-16] MEDS: KETOROLAC TROMETHAMINE 30 MG/ML VIAL IVP ONE (15:12)
[2024-05-16] MEDS: SODIUM CHLORIDE 0.9% 1,000 ML IV ONE (15:12)
[2024-05-16] MEDS: FAMOTIDINE 20 MG/2 ML VIAL IVP ONE (15:12)
[2024-05-16 15:41] LABS: ANION GAP 9 mmol/L (8-16); BASOPHILS % (AUTO) 0.3 % (0.0-2.0); CALCIUM, TOTAL 8.5 mg/dL (8.8-10.5); CARBON DIOXIDE 28 mmol/L (22-29); CHLORIDE 102 mmol/L (98-107); EOSINOPHILS % (AUTO) 0.9 % (1.0-6.0); GLOMERULAR FILTR. RATE CALC > 60 mL/min (>60); GLUCOSE,RANDOM 176 mg/dL (70-110); HEMATOCRIT 43.3 % (41-53); HEMOGLOBIN 14.6 g/dL (13.5-17.5); LYMPHOCYTES # (AUTO) 0.7 K/uL (1.0-4.8); LYMPHOCYTES % (AUTO) 8.7 % (22.0-44.0); MEAN CORPUSCULAR HEMOGLOBIN 30.5 pg (26.0-34.0); MEAN CORPUSCULAR HGB CONC 33.6 G/dL (31.0-37.0); MEAN CORPUSCULAR VOLUME 91 fL (80-100); MONOCYTES # (AUTO) 0.4 K/uL (0.1-1.0); MONOCYTES % (AUTO) 5.1 % (2.0-9.0); NEUTROPHILS # (AUTO) 7.1 K/uL (1.8-7.7); PLATELET COUNT (AUTO) 206 K/uL (150-450); POTASSIUM 3.9 mmol/L (3.5-5.1); RED BLOOD CELL COUNT(AUTO) 4.77 MIL/uL (4.50-5.90); RED CELL DISTRIBUTION WIDTH 13.6 % (11.5-14.5); SODIUM SERUM 139 mmol/L (136-145); UREA NITROGEN, BLOOD 24 mg/dL (7-18); WHITE BLOOD COUNT (AUTO) 8.4 K/uL (4.5-11.0)
[2024-05-16 15:45] LABS: TROPONIN I-HIGH SENSITIVITY 12 ng/L (<76)
[2024-05-16 15:47] LABS: ALANINE AMINOTRANSFERASE 18 U/L (12-78); ALBUMIN 3.4 g/dL (3.4-5.0); ALKALINE PHOSPHATASE 86 U/L (46-116); ASPARTATE AMINOTRANSFERASE 18 U/L (15-37); BILIRUBIN,TOTAL 0.6 mg/dL (0.1-1.0); CREATINE KINASE, TOTAL ONLY 97 U/L (39-308); TOTAL PROTEIN, SERUM 7.6 g/dL (6.4-8.2)
[2024-05-16 16:01] LABS: B-TYPE NATRIURETIC PEPTIDE 219 pg/mL (0-100)
[2024-05-16 16:03] LABS: ALCOHOL, BLOOD (SERUM) < 3 mg/dL (0-10)
[2024-05-16 16:04] LABS: AMPHET/METH SCREEN,URINE POSITIVE (NEGATIVE); BARBITURATE SCREEN, URINE NEGATIVE (NEGATIVE); BENZODIAZEPINES SCREEN,URINE NEGATIVE (NEGATIVE); CANNABINOID SCREEN,URINE POSITIVE (NEGATIVE); COCAINE SCREEN,URINE NEGATIVE (NEGATIVE); METHADONE SCREEN, URINE NEGATIVE (NEGATIVE); OPIATE SCREEN,URINE NEGATIVE (NEGATIVE); PHENCYCLIDINE SCREEN,URINE NEGATIVE (NEGATIVE)
[2024-05-16 16:06] LABS: ALCOHOL, URINE DRUG SCREEN NEGATIVE (NEGATIVE)
[2024-05-16] MEDS ORDERED: MAGNESIUM HYDROXIDE SUSPENSION 30 ML UDCUP PO PRN (16:15)
[2024-05-16] MEDS ORDERED: CloNIDine HCL 0.1 MG TABLET PO PRN (16:15)
[2024-05-16] MEDS ORDERED: RISP125S SQ (16:19)
[2024-05-16 19:15] VITALS: BP 141/101; PULSE 70; RESP 18; TEMP 98.3; O2SAT 97
[2024-05-16] MEDS: LevETIRAcetam 500 MG TABLET PO SCH (20:59)
[2024-05-16] MEDS: ACETAMINOPHEN 325 MG TABLET PO PRN (21:01)
[2024-05-16] MEDS: ONDANSETRON HCL 4 MG/2 ML VIAL IVP PRN (21:12)
[2024-05-17] MEDS: LORazepam 2 MG/ML VIAL IVP PRN (04:31)
[2024-05-17 07:28] LABS: TROPONIN I-HIGH SENSITIVITY 14 ng/L (<76)
[2024-05-17 08:17] VITALS: TEMP 98.1
[2024-05-17] MEDS: FAMOTIDINE 20 MG TABLET PO SCH (08:31)
[2024-05-17 09:28] VITALS: BP 170/86; PULSE 69; RESP 18; TEMP 98.1; O2SAT 93
[2024-05-17] MEDS: NICOTINE 21 MG/24 HOUR PATCH TD SCH (11:45)
[2024-05-17] MEDS: CloNIDine HCL 0.1 MG TABLET PO PRN (11:52)
[2024-05-17 12:31] VITALS: BP 161/98; PULSE 73; RESP 18; TEMP 98.9; O2SAT 97
[2024-05-17 15:48] VITALS: BP 155/98; PULSE 74; RESP 18; TEMP 97.5; O2SAT 97
[2024-05-17 19:42] VITALS: BP 178/104; PULSE 73; RESP 17; TEMP 97.8; O2SAT 100
[2024-05-17] MEDS: ZOLPIDEM TARTRATE 5 MG TABLET PO PRN (21:21)
[2024-05-18 00:05] VITALS: BP 159/98; PULSE 74; RESP 18; TEMP 98.3; O2SAT 96
[2024-05-18 07:04] LABS: ANION GAP 9 mmol/L (8-16); CALCIUM, TOTAL 8.9 mg/dL (8.8-10.5); CARBON DIOXIDE 29 mmol/L (22-29); CHLORIDE 101 mmol/L (98-107); CREATININE 0.95 mg/dL (0.60-1.30); GLOMERULAR FILTR. RATE CALC > 60 mL/min (>60); GLUCOSE,RANDOM 89 mg/dL (70-110); POTASSIUM 3.8 mmol/L (3.5-5.1); SODIUM SERUM 139 mmol/L (136-145); UREA NITROGEN, BLOOD 12 mg/dL (7-18)
[2024-05-18 07:11] LABS: TROPONIN I-HIGH SENSITIVITY 14 ng/L (<76)
[2024-05-18 07:13] LABS: B-TYPE NATRIURETIC PEPTIDE 219 pg/mL (0-100)
[2024-05-18 08:23] VITALS: BP 135/58; PULSE 56; RESP 18; TEMP 98.6; O2SAT 94
== END 2024-05-18 09:30 | disposition left against medical advice (07) | DRG 198 ==
LOC: EMS 13:17 → EDH 16:17 → 5S 19:54
PROVIDERS: ADMIT Internal Medicine; ATTEND Internal Medicine
DX: I24.89 Other forms of acute ischemic heart disease (principal); F11.13 Opioid abuse with withdrawal; G40.909 Epilepsy, unspecified, not intractable, without status epilepticus; I48.91 Unspecified atrial fibrillation; F15.90 Other stimulant use, unspecified, uncomplicated; R07.89 Other chest pain; Z53.21 Procedure and treatment not carried out due to patient leaving prior to being seen by health care provider; F20.9 Schizophrenia, unspecified; J44.89 Other specified chronic obstructive pulmonary disease; I10 Essential (primary) hypertension; Z91.199 Patient's noncompliance with other medical treatment and regimen due to unspecified reason; Z87.891 Personal history of nicotine dependence; Z79.82 Long term (current) use of aspirin; Z79.899 Other long term (current) drug therapy
CPT/HCPCS: 71045; 80048; 80076; 80307; 81003; 82550; 83880; 84484; 85025; 93005; 99285; G0480; J1885; J2060; J2405; J3490; J7030; 36415-L1; 36415-TC